=== PATIENT | female | born 1990 | race African-American/Black ===

== ENCOUNTER 2023-07-01 08:56 | Emergency (ER) | payer OTHER, SELFPAY ==
--- NOTE | 2023-07-01 09:05 | ED.ABDPAIN ---
HPI - Abdominal Pain General Chief Complaint: Abdominal Pain Stated Complaint: Stomach pain Time Seen by Provider: 07/01/23 09:01 Source: patient Mode of arrival: ambulatory Limitations: no limitations History of Present Illness HPI narrative: Kristina is a 33-year-old female patient presenting to the clinic today with complaints of lower abdominal cramping for the past 2-3 days. She reports she is currently on her menses. States that she had her last menstrual period on June 12 through June 18. Reports that she had intercourse a few days ago and took a Plan B and restarted on her menses. She is concerned because she is having lower abdominal cramping. She denies any pelvic pain currently but states the intercourse was rough and she did bleed some afterwards. Also concern for STIs. States that this is a new partner-only have had intercourse twice. States that the intercourse was consensual. Partner was not complaining of any STI symptoms. Patient has not taken any Midol, ibuprofen, or Tylenol for her pain. Denies any urinary symptoms. Related Data Allergies Allergy/AdvReac Type Severity Reaction Status Date / Time No Known Allergies Allergy Verified 07/01/23 09:20 Review of Systems Review of Systems: Pertinent positives per HPI. Patient denies any fever, chills, rash, headache, visual changes, dizziness, cough, shortness of breath, chest pain, palpitations, nausea, vomiting, diarrhea, constipation, or any urinary issues. PMFSH Comments At the time of my signature, I reviewed and agree with the nursing past medical, surgical, social, and family history. There is no relevant family history pertinent to the patient complaint. Exam Narrative: General: Well-developed, morbidly obese, in no apparent distress Head: Normocephalic, atraumatic. Cardio: Regular rate and rhythm, s1 and s2 normal, no murmur appreciated. Resp: Clear to auscultation bilaterally, no rhonchi, rales, wheezing or rubs. Abdomen: Soft, pliable, bowel sounds present in all quadrants, non-tender to palpation, no CVAT tenderness. : Deferred Course Course Emergency Course: Portions of this record may have been created with voice recognition software. Level of Care: Express Care Visit Vital Signs Vital signs: Vital signs reviewed MDM - Abdominal Pain MDM Narrative Medical decision making narrative: At the time of visit patient is resting comfortably on the exam table. Patient appears to be nontoxic. Clean and dirty urine were obtained. Will send dirty urine for STI testing. UA preg negative. UA negative for any sign of infection. Supportive measures were discussed with the patient and they voiced understanding discharge instructions and agrees to treatment plan. Return precautions reviewed Differential Diagnosis Differential diagnosis: Likely abdominal pain, acute appendicitis, calculus of kidney, constipation, diverticulitis, endometriosis, gastroenteritis, pancreatitis, small bowel obstruction and other (UTI, menstrual cramps) Discharge Plan Discharge Clinical Impression: Dysmenorrhea High risk sexual behavior Qualifiers: High risk sexual behavior type: heterosexual Qualified Code(s): Z72.51 - High risk heterosexual behavior Patient Disposition: Home, Self-Care Condition: Stable Instructions: Antibiotic Form, Dysmenorrhea (ED), Sexually Transmitted Diseases (ED), Safe Sex Practices (ED) Additional Instructions: Vaginal bleeding/cramping started likely due to taking Plan B. May take Midol, ibuprofen, or naproxen for lower abdominal cramping/pain UA negative for any sign of infection. test was negative. We have tested you for STIs in the clinic today. We should get these results back by tomorrow Avoid any sexual activity- includes oral, anal, or vaginal intercourse until you get results back and have completed any additional recommended treatment regimens. We will contact you if testing is
[2023-07-01 09:06] VITALS: BP 130/90; PULSE 91; RESP 16; TEMP 36.3; O2SAT 100
[2023-07-01 21:04] LABS: Trichomonas Vag PCR NOT DETECTED (NOT DETECTE)
[2023-07-01 23:26] LABS: Chlamydia trachomatis NOT DETECTED (NOT DETECTE); Neisseria gonorrhoeae PCR NOT DETECTED (NOT DETECTE)
== END 2023-07-01 09:47 | disposition home or self-care (01) ==
PROVIDERS: Emergency Provider Nurse Practitioner Family
DX: N94.6 Dysmenorrhea, unspecified (principal); Z72.51 High risk heterosexual behavior
CPT/HCPCS: 81003; 81025; 87491; 87591; 87661; 99214; G0463

== ENCOUNTER 2023-08-02 11:39 | Emergency (ER) | payer OTHER, SELFPAY ==
[2023-08-02 12:01] VITALS: BP 163/108; PULSE 99; RESP 18; TEMP 37; O2SAT 100
--- NOTE | 2023-08-02 14:31 | ED.FEMALEGU ---
HPI - Female Genitourinary General Chief complaint: Urogenital-Female Stated complaint: std testing Time Seen by Provider: 08/02/23 14:29 Source: patient Mode of arrival: ambulatory Limitations: no limitations History of Present Illness HPI Narrative: Patient is a 33 y/o female who presents to the ED with c/o Related Data Home Medications Medication Instructions Recorded Confirmed amlodipine 10 mg tablet mg 08/02/23 Allergies Allergy/AdvReac Type Severity Reaction Status Date / Time No Known Allergies Allergy Verified 08/02/23 12:04 Course Vital Signs Vital signs: Vital Signs Temperature 98.6 F 08/02/23 12:01 Pulse Rate 99 08/02/23 12:01 Respiratory Rate 18 08/02/23 12:01 Blood Pressure 163/108 H 08/02/23 12:01 Pulse Oximetry 100 08/02/23 12:01 Oxygen Delivery Room Air 08/02/23 12:01 Temperature 98.6 F 08/02/23 12:01 Pulse Rate 99 08/02/23 12:01 Respiratory Rate 18 08/02/23 12:01 Blood Pressure 163/108 H 08/02/23 12:01 Pulse Oximetry 100 08/02/23 12:01 Oxygen Delivery Room Air 08/02/23 12:01 Discharge Plan Discharge Prescriptions: No Action ibuprofen 800 mg tablet 800 mg PO TID PRN (Reason: pain) 10 Days Qty: 30 0RF amlodipine 10 mg tablet Follow-up/Referrals: PHYSICIAN,DATA COLLECTION INTERVIEWER [Primary Care Provider] -
== END 2023-08-03 04:34 | disposition left against medical advice (07) ==
DX: R10.2 Pelvic and perineal pain (principal)
CPT/HCPCS: 99199